=== PATIENT | female | born 2000 | race Hispanic/Latino ===

== ENCOUNTER 2023-02-23 00:06 | Emergency (ER) | payer MEDICAID, OTHER ==
[~2023-02-23] VITALS: Ht 149.9 cm; Wt 78.0 kg
[2023-02-23] MEDS ORDERED: ACETAMINOPHEN 500 MG TABLET PO ONE (03:00)
[2023-02-23] MEDS ORDERED: PENICILLIN G BENZATHINE LA 1.2 MILUNITS/2 ML SYG IM ONE (03:30)
[2023-02-23 03:44] VITALS: TEMP 99.1
[2023-02-23 04:36] VITALS: BP 128/79; PULSE 97; RESP 18; O2SAT 99
== END 2023-02-23 04:36 | disposition home or self-care (01) ==
LOC: EDH 00:06
DX: J02.0 Streptococcal pharyngitis (principal); R50.9 Fever, unspecified; Z20.822 Contact with and (suspected) exposure to COVID-19
CPT/HCPCS: 99283; 87880; 96372; J0561

== ENCOUNTER 2025-01-01 20:23 | Emergency (ER) | payer MEDICAID ==
[~2025-01-01] VITALS: Ht 154.9 cm; Wt 84.8 kg
[2025-01-01 20:54] LABS: ADD UA MICROSCOPIC YES; APPEARANCE,URINE CLOUDY (CLEAR); BILIRUBIN,URINE NEGATIVE (NEGATIVE); COLOR,URINE YELLOW (YELLOW); GLUCOSE, URINE (UA) NEGATIVE (NEGATIVE); KETONES,URINE 5 mg/dL (NEGATIVE); LEUKOCYTE ESTERASE ,URINE 500 Leu/uL (NEGATIVE); NITRATE,URINE NEGATIVE (NEGATIVE); OCCULT BLOOD,URINE NEGATIVE (NEGATIVE); PH,URINE 7.5 (5.0-8.0); PROTEIN,URINE 30 mg/dL (NEGATIVE); UROBILINOGEN,URINE >=8.0 mg/dL (0.2-1.0)
[2025-01-01 20:57] LABS: BACTERIA,URINE RARE /HPF (None Seen); MUCUS,URINE RARE LPF (None Seen); OTHER CASTS, URINE 1 /LPF (None Seen); SQUAMOUS EPITHELIAL CELL,UR MANY /HPF (0-2); WBC,URINE 51-100 /HPF (0-1)
[2025-01-01 21:05] LABS: BASOPHILS # (AUTO) 0.04 K/uL (0.00-0.20); BASOPHILS % (AUTO) 0.4 % (0.0-5.0); EOSINOPHILS # (AUTO) 0.08 K/uL (0.00-0.70); EOSINOPHILS % (AUTO) 0.7 % (0.0-8.0); HEMATOCRIT 43.8 % (36-48); IMMATURE GRANULOCYTE ABSOLUTE 0.04 K/uL (0-1); LYMPHOCYTES # (AUTO) 1.3 K/uL (1.0-4.8); LYMPHOCYTES % (AUTO) 12.2 % (21.0-51.0); MEAN CORPUSCULAR HEMOGLOBIN 30.2 pg (27.0-33.0); MEAN CORPUSCULAR HGB CONC 33.3 g/dL (32.0-36.0); MEAN CORPUSCULAR VOLUME 90.5 fL (79-99); MONOCYTES # (AUTO) 0.9 K/uL (0.1-1.0); MONOCYTES % (AUTO) 8.1 % (3.0-13.0); NEUTROPHILS # (AUTO) 8.6 K/uL (1.8-7.7); NEUTROPHILS % (AUTO) 78.2 % (40.0-77.0); PLATELET COUNT (AUTO) 396 K/uL (130-400); RED BLOOD CELL COUNT(AUTO) 4.84 MIL/uL (4.00-5.50); RED CELL DISTRIBUTION WIDTH 12.9 % (11.0-15.5); WHITE BLOOD COUNT (AUTO) 10.9 K/uL (4.8-10.8)
[2025-01-01 21:16] LABS: CREATININE 0.7 mg/dL (0.5-1.0); POTASSIUM 3.3 mmol/L (3.5-5.1)
[2025-01-01] MEDS ORDERED: LACTATED RINGERS 1000ML IV STA (21:44)
--- NOTE | 2025-01-01 21:44 | ERN ---
General Chief Complaint: Abdominal Pain Stated Complaint: WEAK,NOT ABLE TO EAT,NAUSEA,SWEATS Time Seen by MD: 20:28 Source: patient History of Present Illness Initial Comments Patient is an obese 24-year-old female with no past medical history who has had weakness anorexia sweats fevers nausea vomiting and diarrhea for the last three days. She has never experienced this before and she does not know what is causing it. She does not have any symptoms of an upper respiratory tract infection. Nobody in the household is sick. She does not have itching or burning when she urinates. Allergies: Coded Allergies: No Known Drug Allergies (Unverified Allergy, Unknown, 02/23/23) Past Medical History Past Medical History: No Pertinent History Past Surgical History: None Social History Social History: Negative, Lives with family Constitutional: (+) chills, (+) fever, (+) malaise EENTM: (-) eye pain, (-) blurred vision, (-) tearing, (-) double vision, (-) ear pain, (-) ear discharge, (-) nose pain, (-) nose congestion, (-) throat pain, (-) Throat swelling, (-) mouth pain, (-) tooth pain, (-) mouth swelling, (-) other documentation Respiratory: (-) cough, (-) orthopnea, (-) short of breath, (-) stridor, (-) wheezing, (-) other documentation Cardiovascular: (-) chest pain, (-) edema, (-) palpitations, (-) syncope, (-) dyspnea on exertion, (-) other documentation Gastrointestinal/Abdominal: (+) nausea, (+) vomiting, (+) diarrhea Genitourinary: (-) vaginal discharge, (-) vaginal bleeding, (-) dysuria, (-) frequency, (-) hematuria, (-) pain, (-) other documentation Physical Exam Physical Exam Dictation Patient has an extremely flat affect as she is relating her symptoms to me General Appearance: (+) no apparent distress Orientation: (+) alert, (+) oriented x 3 Head/Face Trauma: No Eye: bilateral eye normal inspection, bilateral eye PERRL, bilateral eye EOMI Ear, Nose, Throat: (+) hearing grossly normal, (+) normal ENT inspection, (+) moist mucous membraine, (+) normal pharynx Neck: (+) normal inspection, (+) supple, (+) full range of motion Respiratory: (+) chest non-tender, (+) lungs clear, (+) well ventilated Heart: (+) regular, (+) no gallop Vascular: (+) no edema, (+) normal peripheral pulse Gastrointestinal: (+) soft, (+) non-tender, (+) bowel sound present Results Laboratory and Microbiology Lab and Micro Result Laboratory Tests Test 01/01/25 20:45 01/01/25 20:55 01/01/25 22:14 01/01/25 22:27 Urine Color YELLOW (YELLOW) Urine Appearance CLOUDY (CLEAR) H Urine pH 7.5 (5.0-8.0) Urine Specific [place] 1.018 (1.001-1.031) Urine Protein 30 mg/dL (NEGATIVE) H Urine Glucose (UA) NEGATIVE mg/dL (NEGATIVE) Urine Ketones 5 mg/dL (NEGATIVE) H Urine Occult Blood NEGATIVE (NEGATIVE) Urine Nitrate NEGATIVE (NEGATIVE) Urine Bilirubin NEGATIVE mg/dL (NEGATIVE) Urine Urobilinogen >=8.0 mg/dL (0.2-1.0) H Urine Leukocyte Esterase 500 Wiley/uL (NEGATIVE) H Urine RBC 2-5 /HPF (0-1) H Urine WBC 51-100 /HPF (0-1) H Urine Squamous Epithelial Cells MANY /HPF (0-2) Urine Bacteria RARE /HPF (None Seen) Urine Other Casts 1 /LPF (None Seen) Urine HCG, Qualitative NEGATIVE (NEGATIVE) White Blood Count 10.9 K/uL (4.8-10.8) H Red Blood Count 4.84 MIL/uL (4.00-5.50) Hemoglobin 14.6 g/dL (12.0-16.0) Hematocrit 43.8 % (36-48) Mean Corpuscular Volume 90.5 fL (79-99) Mean Corpuscular Hemoglobin 30.2 pg (27.0-33.0) Mean Corpuscular Hemoglobin Concent 33.3 g/dL (32.0-36.0) Red Cell Distribution Width 12.9 % (11.0-15.5) Platelet Count 396 K/uL (130-400) Mean Platelet Volume 10.2 fL (7.5-10.5) Immature Granulocyte % (Auto) 0.4 % (0-1) Neutrophils (%) (Auto) 78.2 % (40.0-77.0) H Lymphocytes (%) (Auto) 12.2 % (21.0-51.0) L Monocytes (%) (Auto) 8.1 % (3.0-13.0) Eosinophils (%) (Auto) 0.7 % (0.0-8.0) Basophils (%) (Auto) 0.4 % (0.0-5.0) Neutrophils # (Auto) 8.6 K/uL (1.8-7.7) H Lymphocytes # (Auto) 1.3 K/uL (1.0-4.8) Monocytes # (Auto) 0.9 K/uL (0.1-1.0) Eosinophils # (Auto) 0.08 K/uL (0.00-0.70) Basophils # (Auto) 0.04 K/uL (0.00-0.20) Absolute Immature Granulocyte (auto 0.04 K/uL (0-1) Nucleated Red Blood Cells 0.0 % (0.0-0.19) Sodium Level 142 mmol/L (136-145) 143 mmol/L (136-145) Potassium Level 3.3 mmol/L (3.5-5.1) L 3.3 mmol/L (3.5-5.1) L Chloride Level 103 mmol/L (101-111) 103 mmol/L (101-111) Carbon Dioxide Level 28 mmol/L (21-32) 28 mmol/L (21-32) Blood Urea Nitrogen 5 mg/dL (7-18) L 5 mg/dL (7-18) L Creatinine 0.7 mg/dL (0.5-1.0) 0.6 mg/dL (0.5-1.0) Glomerular Filtration Rate Calc 125 mL/min (>90) 130 mL/min (>90) Random Glucose 109 mg/dL (70-105) H 103 mg/dL (70-105) Total Calcium 9.3 mg/dL (8.5-10.1) 9.3 mg/dL (8.5-10.1) Lipase 22 U/L (16-77) Total Bilirubin 0.4 mg/dL (0.2-1.0) Aspartate Amino Transf (AST/SGOT) 21 U/L (10-37) Alanine Aminotransferase (ALT/SGPT) 22 U/L (12-78) Alkaline Phosphatase 110 U/L (50-136) Total Protein 8.0 g/dL (6.0-8.3) Albumin 4.2 g/dL (3.5-5.0) Influenza Type A Antigen Negative For Type A Influenza Type B Antigen Negative For Type B SARS-CoV-2 Antigen (Rapid) PRESUMPTIVE NEGATIVE Group A Streptococcus Rapid negative (NEGATIVE) MDM I will cast a wide search for the possible causes of the patient's symptoms. It could be gastroenteritis or UTI or or dehydration an upper respiratory tract infection. Patient has a urinary tract infection I will discharge her on seven day course of Keflex. ED Course Orders Procedure Category Date Status Time Vital Signs Per CPOE 01/01/25 Transmitted Routine 20:44 Saline Lock Iv CPOE 01/01/25 Transmitted 20:44 Cbc With Differential LAB 01/01/25 Complete 20:44 Lipase LAB 01/01/25 Complete 20:44 Urinalysis Profile LAB 01/01/25 Complete 20:44 Basic Metabolic Panel LAB 01/01/25 Complete 20:44 ,Urine Test LAB 01/01/25 Complete 20:45 Culture Urine MAKI 01/01/25 In Process 20:54 Comprehensive LAB 01/01/25 Complete Metabolic Panel 21:44 Covid19 (Sars Antigen LAB 01/01/25 Complete Rapid) 21:44 Influenza Type A & B, LAB 01/01/25 Complete Rapid 21:44 Rapid (Group A Strep) LAB 01/01/25 Complete 21:44 Lactated Ringers PHA 01/01/25 Complete 1000ml (Lactated 21:44 Current Medications Medications (Trade) Dose Ordered Sig/Carlos Route PRN Reason Start Time Stop Time Status Last Admin Dose Admin Lactated Ringer's (Lactated Ringers 1000ml) 1,000 ml BOLUS STAT IV 01/01/25 21:44 01/01/25 21:50 DC Vital Signs Date Time Temp Pulse Resp B/P (MAP) Pulse Ox O2 Delivery O2 Flow Rate FiO2 01/01/25 20:40 98.8 82 20 129/77 97 Room Air DX & DISP Disposition: Discharge Departure Impression: Primary Impression: UTI (urinary tract infection) Condition: Stable Scripts Cephalexin Monohydrate (Keflex) 500 Mg Cap 500 MG PO QID for 7 Days, #28 CAP Prov: MARYA KOEHLER MD 01/02/25 Additional Instructions: You have a urinary tract infection I have sent a prescription for antibiotics to your pharmacy. If your symptoms do not improve in the next 3-4 days please return or see your primary care physician. Referrals: SELF,REFERRAL (PCP) MARYA KOEHLER MD January 01, 2025 21:44
[2025-01-01 22:29] LABS: CREATININE 0.6 mg/dL (0.5-1.0); POTASSIUM 3.3 mmol/L (3.5-5.1)
[2025-01-01 22:34] LABS: ALBUMIN 4.2 g/dL (3.5-5.0); BILIRUBIN,TOTAL 0.4 mg/dL (0.2-1.0)
[2025-01-01 22:57] LABS: RAPID GROUP A STREP negative (NEGATIVE)
[2025-01-01 23:06] LABS: COVID19 (SARS ANTIGEN RAPID) PRESUMPTIVE NEGATIVE (NEGATIVE); INFLUENZA TYPE A Negative For Type A (NEGATIVE); INFLUENZA TYPE B Negative For Type B (NEGATIVE)
[2025-01-02] MEDS ORDERED: CEPH500B PO (00:02)
--- NOTE | 2025-01-02 00:08 | NUR ---
PT BEING DISCHARGED HOME. PER ER FLUIDS CANCELLED.
[2025-01-02 00:16] VITALS: BP 134/74; PULSE 79; RESP 20; TEMP 98.8; O2SAT 100
== END 2025-01-02 00:11 | disposition home or self-care (01) ==
LOC: EDH 20:23
DX: N39.0 Urinary tract infection, site not specified (principal); E66.9 Obesity, unspecified; Z20.822 Contact with and (suspected) exposure to COVID-19; Z68.35 Body mass index [BMI] 35.0-35.9, adult
CPT/HCPCS: 36415; 80048; 80053; 81001; 81025; 83690; 85025; 87086; 87426; 87804; 87880; 99283

== ENCOUNTER 2025-05-07 21:37 | Emergency (ER) | payer MEDICAID ==
[~2025-05-07] VITALS: Ht 157.5 cm; Wt 77.1 kg
[~2025-05-07 21:37] MED LIST: CEPH500B PO
[2025-05-07 22:28] VITALS: TEMP 102
--- NOTE | 2025-05-07 22:44 | ERN ---
ED Note History of Present Illness Stated Complaint: C/O PAIN TO THROAT, RT EARACHE Chief Complaint: Earache Time Seen by MD: 21:47 Time Seen by Midlevel: 21:47 Dictation: The patient is a 25-year-old female with no significant past medical history who presents to the emergency department with complaints of sore throat in left ear pain and fever onset yesterday. Patient denies any cough denies any other associated symptoms. Allergies: Coded Allergies: No Known Drug Allergies (Unverified Allergy, Unknown, 02/23/23) Home Meds Active Scripts Ibuprofen (Ibuprofen) 600 Mg Tablet, 1 TAB PO TID for pain for 10 Days, #30 TAB 0 Refills with food Prov:MARTINEZANA KENNY [employer] 05/07/25 Amoxicillin (Amoxicillin) 500 Mg Tablet, 1 TAB PO BID for 10 Days, #20 TAB 0 Refills Prov:ANA MARTINEZ [facility] 05/07/25 Cephalexin Monohydrate (Keflex) 500 Mg Cap, 500 MG PO QID for 7 Days, #28 CAP Prov:MARYA KOEHLER MD 01/02/25 Past Medical History Past Medical History: No Pertinent History Surgical History: None Social History: Negative, Lives with family RN Note Reviewed/Agreed w/PFSH: Yes Review of System Dictation Constitutional: Negative for ,chills, and weight loss positive for fever Eyes: Negative for injury, pain,redness, and discharge ENT: Positive for sore throat Cardiovascular: Negative for chest pain, palpitations, and edema Respiratory: Negative for shortness of breath, cough, and wheezing, Abdomen/GI: Negative for abdominal pain, nausea, vomiting, diarrhea, and constipation Back: Negative for injury and pain : Negative for injury, bleeding and discharge MS/Extremity: Negative for injury and deformity Skin: Negative for rash, and discoloration Neuro: Negative for headache, weakness, numbness, tingling, and seizure Psych: Negative for suicide ideation, homicidal ideation, and hallucinations Initial Vital Sign VS Vital Signs Date Time Temp Pulse Resp B/P (MAP) Pulse Ox O2 Delivery O2 Flow Rate FiO2 05/07/25 21:39 102.0 118 20 115/72 Room Air 05/07/25 21:54 98 0 21 Physical Exam Dictation Vital Signs reviewed General Appearance: Alert, oriented x 3, no acute distress, well developed, nourished. Head and Face: non-traumatic. Eyes: PERRL, pink conjunctivas, eyelid no trauma, anterior chamber with arcus senilis. Ears: Pinnas intact and no signs of trauma or erythema ear canals clear and no discharge TM no erythema Nose: No discharge, no bleeding. Oropharynx: Mouth normal, tongue pink. pharynx clear,+ erythema,3+ tonsils + exudates, no abscesses noted, mucous membrane moist Neck: Supple, non-tender, no thyromegaly, no masses, no JVD, no bruits Breast:Deferred Chest:No tenderness, no crepitus, no paradoxical movement, no retractions Lungs:Clear, well-ventilated, symmetric, no rales, no wheezing, no rhonchi, no stridor, good breath sounds bilaterally Heart: Regular rate, regular rhythm, no murmur, no gallops Vascular: no peripheral edema, Abdomen: Soft, positive bowel sounds, nondistended, no guarding, nontender, no rebound, no masses no hepatomegaly, no splenomegaly, no Almaraz's sign, no hernias. Rectal: Deferred Genital: Deferred Neurological: Normal speech, motor function intact, sensory function intact Musculoskeletal: Neck nontender, full range of motion, back nontender, full range of motion, Extremities: nontender, full range of motion Skin: Color pink, dry, no turgor, no rash, no lacerations, no abrasions, no contusions. Lymphatic: Deferred Results (Laboratory/Radiology) Laboratory/Radiology Laboratory Tests Test 05/07/25 21:44 05/07/25 22:22 Group A Streptococcus Rapid negative (NEGATIVE) Urine HCG, Qualitative NEGATIVE (NEGATIVE) Labs Reviewed?: Yes ED Course ED Course Orders Procedure Category Date Status Time Rapid (Group A Strep) LAB 05/07/25 Complete 21:56 ,Urine Test LAB 05/07/25 Complete 21:56 Ceftriaxone 1g Vial PHA 05/07/25 Complete (Rocephine 1g Inj) 22:00 Acetaminophen 500mg PHA 05/07/25 Complete Tab (Tylenol 500mg T 22:00 Dexamethasone 4mg/Ml PHA 05/07/25 In Process 1ml Vial (Dexametha 23:00 Ketorolac 60mg/2ml PHA 05/07/25 In Process (Toradol 60mg/2ml) 23:00 Current Medications Medications (Trade) Dose Ordered Sig/Carlos Route PRN Reason Start Time Stop Time Status Last Admin Dose Admin Acetaminophen (TYLenol 500MG TAB) 1,000 mg ONCE ONCE PO 05/07/25 22:00 05/07/25 22:01 DC 05/07/25 22:28 Ceftriaxone Sodium (ROCEphine 1G INJ) 1 gm ONCE ONCE IM 05/07/25 22:00 05/07/25 22:01 DC 05/07/25 22:30 Dexamethasone Sodium Phosphate (dexaMETHasone 4MG/ML 1ML VIAL) 6 mg ONCE ONCE IM 05/07/25 23:00 05/07/25 23:01 Ketorolac Tromethamine (toRADol 60MG/ 2ML) 60 mg ONCE ONCE IM 05/07/25 23:00 05/07/25 23:01 Vital Signs Date Time Temp Pulse Resp B/P (MAP) Pulse Ox O2 Delivery O2 Flow Rate FiO2 05/07/25 22:28 102.0 05/07/25 21:54 102.0 110 16 115/72 98 Room Air* 0 21 05/07/25 21:39 102.0 118 20 115/72 Room Air Medical Decision Making MDM The patient is a 25-year-old female with no significant past medical history who presents to the emergency department with complaints of sore throat in left ear pain and fever onset yesterday. Patient denies any cough denies any other associated symptoms. Serology was negative. Patient does have erythema and exudates on tonsils. We will be treated with the antibiotics. On physical exam patient is in no acute distress, nontoxic appearance, no significant swelling to throat, no signs of abscess Differential diagnosis: Strep throat, otitis externa, otitis media, pharyngitis Need for hospitalization: Patient does not meet criteria for hospitalization. There are no social concerns with this patient. DX & DISP Disposition: Discharge Departure Impression: Primary Impression: Pharyngitis Condition: Stable Scripts Ibuprofen (Ibuprofen) 600 Mg Tablet 1 TAB PO TID for pain for 10 Days, #30 TAB 0 Refills with food Prov: ANA MARTINEZ [employer] 05/07/25 Amoxicillin (Amoxicillin) 500 Mg Tablet 1 TAB PO BID for 10 Days, #20 TAB 0 Refills Prov: ANA MARTINEZ 05/07/25 Additional Instructions: Please take your medications as prescribed. Follow up with the primary doctor in 1-2 days. If anything worsens please return to ER. FOLLOW-UP WITH PRIMARY CARE PROVIDER IN 1 TO 2 DAYS. TAKE MEDICATIONS DIRECTED HERE IN THE EMERGENCY ROOM. OKAY TO CONTINUE HOME MEDICATIONS UNLESS OTHERWISE DISCUSSED DURING YOUR VISIT IN THE EMERGENCY ROOM TODAY. RETURN TO YOUR NEAREST EMERGENCY ROOM IF SYMPTOMS WORSEN OR IF THERE IS NO IMPROVEMENT. CALL 911 IF YOU NEED IMMEDIATE ASSISTANCE. TAKE TYLENOL [id number] NEEDED AND IF NO CONTRAINDICATIONS ARE PRESENT. INCREASE ORAL HYDRATION. A WOUND CULTURE OR URINE CULTURE WAS ORDERED HERE IN THE EMERGENCY ROOM DEPARTMENT PLEASE FOLLOW-UP WITH PRIMARY CARE PROVIDER AND ADVISE THEM TO GET REPEAT PORTS FROM OUR FACILITY. IF YOU HAD ANY RACIEL WRAP/SPLINTS THAT WERE APPLIED HERE, PLEASE DO NOT REMOVE THEM UNTIL YOU SEE YOUR PRIMARY CARE OR SPECIALTY. Referrals: SELF,REFERRAL (PCP) Time of Disposition: 22:50 I have reviewed the case, and I agree with, Diagnosis and Plan ANA MARTINEZ [facility] May 07, 2025 22:43
[2025-05-07] MEDS ORDERED: IBUP-1492 PO (22:50)
[2025-05-07] MEDS ORDERED: AMOX500T2 PO (22:50)
[2025-05-07 23:16] VITALS: BP 120/70; PULSE 90; RESP 16; TEMP 100.1; O2SAT 98
== END 2025-05-07 23:24 | disposition home or self-care (01) ==
LOC: EDH 21:37
DX: J02.9 Acute pharyngitis, unspecified (principal); Z79.1 Long term (current) use of non-steroidal anti-inflammatories (NSAID); Z20.822 Contact with and (suspected) exposure to COVID-19
CPT/HCPCS: 99284; 87880; 81025; 96372 ×3; J1100; J1885; J0696